=== PATIENT | male | born 1955 | race African-American/Black ===

== ENCOUNTER 2019-05-08 17:51 | Emergency (ER) | payer BC, MEDICARE ==
[~2019-05-08] VITALS: Ht 182.9 cm; Wt 63.5 kg
[2019-05-08 19:00] VITALS: BP 85/66
--- NOTE | 2019-05-08 19:00 | NUR ---
ED Nurse Note: Patient walked in from home d/t bilateral leg swelling x 3 days. Patient aao x 4 and ambulatory with unsteady gait. Patient placed on school lunch monitor and changed into gown. EKG being taken by transport tech at bedside. Patient stable during assessment. ERMD at bedside.
--- NOTE | 2019-05-08 19:14 | Emergency Room Report ---
History of Present Illness General Chief Complaint: General Complaint Source: Patient Present Illness HPI Patient is a 63-year-old male who presents to the ER for leg swelling. Patient states that is been there for a while. He states that he was seen by his doctor and given some pills but that the swelling is still there. Patient states is a history of a bad heart and fluid in his lungs. Patient is a poor historian and nobody is with him at bedside for me to do further questioning. He denies any falls. COVID-19 risk:Contact w/high r: No COVID-19 risk:Travel to affect: No Has patient experienced scruggs: No Allergies: Coded Allergies: No Known Allergies (Unverified , 05/08/19) Patient History Reviewed Nursing Documentation: PMH: Agreed; PSxH: Agreed Nursing Documentation-PMH Hx Cardiac Problems: Yes Hx Cancer: Yes Review of Systems All Other Systems: negative except mentioned in HPI Physical Exam Vital Signs Date Time Temp Pulse Resp B/P (MAP) Pulse Ox O2 Delivery O2 Flow Rate FiO2 05/08/19 18:55 97.9 86 16 100/60 (73) 98 Room Air Procedures Critical Care Time Critical Care Time Total critical care time: Approximately 35 minutes. Due to a high probability of clinically significant, life threatening deterioration, the patient required my highest level of preparedness to intervene emergently and I personally spent this critical care time directly and personally managing the patient. This critical care time included obtaining a history; examining the patient; pulse oximetry; ordering and review of studies; arranging urgent treatment with development of a management plan; evaluation of patient's response to treatment ; frequent reassessment; and, discussions with other providers.This critical care time was performed to assess and manage the high probability of imminent, life-threatening deterioration that could result in multi-organ failure. It was exclusive of separately billable procedures and treating other patients and teaching time. Please see MDM section and the rest of the note for further information on patient assessment and treatment. Medical Decision Making Diagnostic Impression: Primary Impression: STEMI (ST elevation myocardial infarction) Additional Impression: Edema leg ER Course Patients EKG's demonstrate ST elevation in V3 and V4. Patient denies any active chest pain therefore I will not give him nitroglycerin. Patient given p.o. aspirin. EKG is faxed immediately to [facility] emergency department. Pending x -ray to give heparin. Patient's x-ray read by stat rad "The lungs are hypoinflated with vascular crowding. Mild pulmonary vascular congestion. Small bilateral pleural effusions left greater than right. Negative for pneumothorax. Patchy airspace disease in both lungs indeterminate for atelectasis or pneumonia. " No widened mediastinum. 4000 units of heparin IV push given prior to patient being transferred. EKG Diagnostic Results EKG Time: 19:08 EP Interpretation: MD Torey Rate: normal Rhythm: NSR ST Segments: other - ST elevated V3 V4 Other Impression Acute MS ASA given to the pt in ED: Yes Rhythm Strip Diag. Results Rhythm Strip Time: 19:44 EP Interpretation: yes Rate: 85 Rhythm: NSR, no PVC's, no ectopy Last Vital Signs Date Time Temp Pulse Resp B/P (MAP) Pulse Ox O2 Delivery O2 Flow Rate FiO2 05/08/19 18:55 97.9 86 16 100/60 (73) 98 Room Air Disposition: XFER SHT-TRM HOSP Condition: Critical Physician Consult: Dr. Salazar from [facility] Talita Lema M.D. May 08, 2019 19:14
--- NOTE | 2019-05-08 19:54 | Diagnostic Imaging Report ---
Indication: Left lower extremity pain and swelling. Technique: Duplex Doppler imaging performed from the common femoral vein to the popliteal vein. FINDINGS: Normal compressibility demonstrated from the left common femoral vein to the popliteal vein. Respiratory phasicity and good augmentation demonstrated on waveform analysis. There is no evidence of thrombosis. IMPRESSION: No evidence of deep venous thrombosis within the left lower extremity.
--- NOTE | 2019-05-08 19:55 | NUR ---
ED Nurse Note: Blood sent to lab
--- NOTE | 2019-05-08 19:56 | Diagnostic Imaging Report ---
Indication: Dyspnea Comparison: None A single view chest radiograph was obtained. Findings: Lung volumes are low. There is evidence of a left pleural effusion. Underlying parenchymal disease is also present and could be atelectasis or pneumonia. Please correlate clinically. Trace right pleural effusion is also suspected. The heart is prominent in size but lung volumes are quite low so this may be normal. The bones are osteopenic. IMPRESSION: Left pleural effusion. Suspect underlying pneumonia or atelectasis.
[2019-05-08 20:00] VITALS: BP 85/66
[2019-05-08] MEDS ORDERED: Heparin 5000 units/ml inj ONE (20:00)
[2019-05-08] MEDS ORDERED: Heparin 1000 units/ml 1ml Vial INJ ONE (20:00)
--- NOTE | 2019-05-08 20:00 | NUR ---
ED Nurse Note: Patient transported via 911 [facility] on ACLS protocol in stable condition to [facility]. Addendum: 05/08/19 at 2314 by [facility] ER DISCHARGE NOTE: Patient cleared for transfer to [facility] per ERMD. Patient transported via 911 [facility]AF[facility] on ACLS protocol in stable condition to [facility] accompanied by [facility] ambulance personnel. All belongings handed off to [facility] ambulance personnel.
[2019-05-08] MEDS ORDERED: Heparin 5000 units/ml inj IV ONE (20:15)
[2019-05-08 20:18] LABS: BASOPHILS % (AUTO) 1.8 % (0.0-2.0); EOSINOPHILS % (AUTO) 0.9 % (0.0-3.0); HEMATOCRIT 43.1 % (42.0-52.0); HEMOGLOBIN 13.1 G/DL (14.2-18.0); LYMPHOCYTES % (AUTO) 27.1 % (20.0-45.0); MEAN CORPUSCULAR VOLUME 101 FL (80-99); MONOCYTES % (AUTO) 9.4 % (1.0-10.0); NEUTROPHILS % (AUTO) 60.8 % (45.0-75.0); PLATELET COUNT 140 K/UL (150-450); RED BLOOD COUNT 4.28 M/UL (4.70-6.10); RED CELL DISTRIBUTION WIDTH 16.5 % (11.6-14.8); WHITE BLOOD COUNT 4.6 K/UL (4.8-10.8)
[2019-05-08 20:38] LABS: ANION GAP 8 mmol/L (5-15); BLOOD UREA NITROGEN 29 mg/dL (7-18); CALCIUM 10.4 MG/DL (8.5-10.1); CARBON DIOXIDE 32 MMOL/L (21-32); CHLORIDE 111 MMOL/L (98-107); CREATININE 1.1 MG/DL (0.55-1.30); POTASSIUM 4.3 MMOL/L (3.5-5.1); SODIUM 151 MMOL/L (136-145)
[2019-05-08 20:39] LABS: INR 1.1 (0.9-1.1)
[2019-05-08 20:47] LABS: ALANINE AMINOTRANSFERASE 17 U/L (12-78); ALBUMIN 2.7 G/DL (3.4-5.0); ALBUMIN/GLOBULIN RATIO 0.6 (1.0-2.7); ALKALINE PHOSPHATASE 68 U/L (46-116); ASPARTATE AMINO TRANSFERASE 19 U/L (15-37); BILIRUBIN,TOTAL 0.4 MG/DL (0.2-1.0)
== END 2019-05-08 20:00 | disposition short-term general hospital (02) ==
LOC: EMR 19:00
DX: I21.3 ST elevation (STEMI) myocardial infarction of unspecified site (principal); R60.0 Localized edema; J90 Pleural effusion, not elsewhere classified
CPT/HCPCS: 36415; 71045; 80053; 83735; 83880; 84484; 85025; 85610; 85730; 93005; 93971; 99284; J1644